=== PATIENT | male | born 1950 | race Caucasian/White ===

== ENCOUNTER → 2020-11-29 | Outpatient (CLI) | payer MEDICARE, OTHER ==
[~2020-11-29] MED LIST: ADVAIR 500-501 EACH INH; ALBUTEROL1.25 MG/3 INH; AMITRIPTYLINE100 MG PO; ASPIRIN CHEWABL81 MG PO; ATORVASTATIN CA20 MG PO; BRILINTA 90 MG90 MG PO; BUSPAR 10MG10 MG PO; CILOSTAZOL100 MG PO; FLEXERIL 10 MG10 MG PO; FLOMAX 0.4 MG0.4 MG PO; IMDUR ER TAB 3030 MG PO; IMDUR ER TAB 6060 MG PO; LEVEMIR FL100 UNIT/1 SC; LISINOPRIL-HCT1 EACH PO; LOPRESSOR 25 MG25 MG PO; LOPRESSOR50 MG PO; NITROGLYCERIN0.4 MG SL; NIZORAL 2% CREA15 GM TOP; NOVOLOG FL100 UNIT/1 SC; OMEPRAZOLE40 MG PO; PROSCAR5 MG PO; SINGULAIR10 MG PO; SYNTHROID50 MCG PO; VENTOLIN HFA 66.7 GM INH; VISTARIL25 MG PO; VOLTAREN EC 7575 MG PO; ZETIA 10 MG TAB10 MG PO; ZOLOFT25 MG PO; ZYRTEC10 M3 PO
== END ==
LOC: HEART 5 10-25 08:00 → NM 11-08 11:00 → ECHO 11-08 11:00 → NM 11-08 13:00 → ECHO 09:00 → NM 10:00
DX: I25.10 Atherosclerotic heart disease of native coronary artery without angina pectoris (principal); I50.31 Acute diastolic (congestive) heart failure; I07.1 Rheumatic tricuspid insufficiency
CPT/HCPCS: ECHO; 93306; J2785

== ENCOUNTER → 2022-04-05 | Outpatient (CLI) | payer MEDICARE, OTHER ==
[~2022-04-05] MED LIST changes: +HYDROXYZINE HCL50 MG PO; -IMDUR ER TAB 6060 MG PO; +ISOSORBIDE MONO60 MG PO; +MAPAP ARTHRITI650 MG PO; +PROAIR HFA8.5 GM INH; +RYBELSUS3 MG PO; -VENTOLIN HFA 66.7 GM INH; -VISTARIL25 MG PO; +YUPELRI175 MCG/3 NEB; -ZETIA 10 MG TAB10 MG PO; +ZETIA10 MG PO; +ZOLOFT100 MG PO; -ZOLOFT25 MG PO; -ZYRTEC10 M3 PO; +ZYRTEC10 MG PO
[2022-04-05 14:15] LABS: HEMOGLOBIN 14.7 gm/dl (14.0-17.5); RED BLOOD COUNT 4.58 M/UL (4.20-5.50); WHITE BLOOD COUNT 8.9 K/UL (4.5-11.0)
[2022-04-05 14:35] LABS: BUN/CREATININE RATIO 25 (0-10)
== END ==
LOC: EDSTATUS 12:30 → OPSV2 12:30
PROVIDERS: Orthopaedic Surgery
DX: Z01.818 Encounter for other preprocedural examination (principal); M17.11 Unilateral primary osteoarthritis, right knee
CPT/HCPCS: 36415; 71046; 80048; 83036; 85025

== ENCOUNTER 2022-05-01 04:18 | Observation (INO) | payer MEDICARE, OTHER ==
[~2022-05-01] VITALS: Ht 175.3 cm; Wt 113.4 kg
[~2022-05-01 04:18] MED LIST changes: +ALBUTEROL2.5 MG/3 M INH; +ASPIR-TRIN325 MG PO; +ATORVASTATIN CA40 MG PO; +HYDROCODON-ACE1 EAC6 PO; -LEVEMIR FL100 UNIT/1 SC; +LEVEMIR FL100 UNIT/1 SQ; +MELATONIN10 M2 PO; +NOVOLOG FL100 UNIT/1 INJ; -NOVOLOG FL100 UNIT/1 SC
[2022-05-01 05:44] LABS: RED BLOOD COUNT 3.48 M/UL (4.20-5.50); WHITE BLOOD COUNT 10.1 K/UL (4.5-11.0)
[2022-05-01 06:14] LABS: BUN/CREATININE RATIO 17 (0-10)
[2022-05-01] MEDS ORDERED: MAPAP ARTHRITI650 MG PO (09:58)
[2022-05-02 03:17] LABS: HEMOGLOBIN 11.1 gm/dl (14.0-17.5); RED BLOOD COUNT 3.54 M/UL (4.20-5.50); WHITE BLOOD COUNT 10.4 K/UL (4.5-11.0)
[2022-05-02 03:51] LABS: BUN/CREATININE RATIO 18 (0-10)
[2022-05-02] MEDS ORDERED: MAPAP ARTHRITI650 MG PO (09:01)
== END 2022-05-02 11:07 | disposition home or self-care (01) ==
LOC: ER1 04:18 → CDU 08:12 → M/S 08:12
PROVIDERS: Emergency Medicine; Physician Assistant Medical; ADMIT Internal Medicine
DX: J98.11 Atelectasis (principal); Z20.822 Contact with and (suspected) exposure to COVID-19; K59.00 Constipation, unspecified; J44.9 Chronic obstructive pulmonary disease, unspecified; J96.11 Chronic respiratory failure with hypoxia; I10 Essential (primary) hypertension; E78.5 Hyperlipidemia, unspecified; I25.10 Atherosclerotic heart disease of native coronary artery without angina pectoris; E11.9 Type 2 diabetes mellitus without complications; E03.9 Hypothyroidism, unspecified; E66.9 Obesity, unspecified; Z68.36 Body mass index [BMI] 36.0-36.9, adult; Z79.4 Long term (current) use of insulin; Z79.82 Long term (current) use of aspirin; Z79.890 Hormone replacement therapy; Z79.899 Other long term (current) drug therapy; Z95.1 Presence of aortocoronary bypass graft; Z95.5 Presence of coronary angioplasty implant and graft
CPT/HCPCS: 36415; 36600; 71045; 80048; 80053; 81001; 82803; 82962; 83605; 83735; 83880; 84439; 84443; 84484; 85025; 85027; 85652; 86140; 87040; 93005; 96374; 96375; 97161; 97166; 99285; G0378; G0480; J2250; U0002